=== PATIENT | male | born 1995 | race Caucasian/White ===

== ENCOUNTER 2019-11-10 13:24 | Emergency (ER) | payer OTHER ==
[2019-11-10 13:48] VITALS: BP 145/82; PULSE 77
--- NOTE | 2019-11-10 14:24 | EDM.PDOC ---
ED HPI GENERAL MEDICAL PROBLEM - General Chief Complaint: General Stated Complaint: RIGHT ARM PAIN Time Seen by Provider: 11/10/19 14:09 - History of Present Illness INITIAL COMMENTS - FREE TEXT/NARRATIVE: Presents emergency room by self for right upper arm injury which occurred just 1 hour prior to arrival. Patient was at the elevator on top of the semi truck in which a protective cage, hit his right upper arm and right elbow area. He did not get pinched in between surfaces. He felt immediate pain to the area, he did not hear any crack or snap to the right upper arm. He is right-hand dominant. Patient rates his pain constant sharp 4-10. Pain is worse with range of motion of the joint or pressing on his right upper arm. He did not take anything for the pain. Right Upper Arm Pain Score (Numeric/FACES): 4 - Related Data Allergies Allergy/AdvReac Type Severity Reaction Status Date / Time grass pollen Allergy Rash Verified 11/10/19 13:49 Tetanus Vaccines and Toxoid Allergy Edema Verified 11/10/19 13:49 [Tetanus Vaccines & Toxoid] venom-honey bee Allergy Rash Verified 11/10/19 13:49 [bee venom (honey bee)] Home Meds: Home Meds . [No Known Home Meds] 09/24/15 [History] Past Medical History Respiratory History: Reports: Asthma Other Respiratory History: ?exercise induced asthma as a child Other Musculoskeletal History: cracked collar bone Neurological History: Reports: Concussion Psychiatric History: Reports: Learning Disability, Suicidal Ideation Other Psychiatric History: IAp for learning - Infectious Disease History Infectious Disease History: Reports: Chicken Pox - Past Surgical History HEENT Surgical History: Reports: Adenoidectomy, Myringotomy w Tube(s), Tonsillectomy Social & Family History - Tobacco Use Smoking Status *Q: Never Smoker Second Hand Smoke Exposure: Yes - Caffeine Use Caffeine Use: Reports: None - Recreational Drug Use Recreational Drug Use: No ED ROS GENERAL - Review of Systems Review Of Systems: See Below Constitutional: Reports: No Symptoms HEENT: Reports: No Symptoms Respiratory: Reports: No Symptoms Cardiovascular: Reports: No Symptoms Musculoskeletal: Reports: Arm Pain (right upper arm pain/elbow pain.) Skin: Reports: No Symptoms. Denies: Cyanosis, Bruising, Erythema, Wound, Change in Color ED EXAM, GENERAL - Physical Exam Exam: See Below Exam Limited By: No Limitations General Appearance: Alert, WD/WN, No Apparent Distress Head: Atraumatic, Normocephalic Neck: Normal Inspection, Supple, Non-Tender Respiratory/Chest: Lungs Clear, Normal Breath Sounds Cardiovascular: Normal Peripheral Pulses, Regular Rate, Rhythm Peripheral Pulses: 2+: Radial (L), Radial (R) Back Exam: Normal Inspection, Full Range of Motion Extremities: Normal Inspection, Arm Pain. No: Joint Swelling, Pallor Psychiatric: Normal Affect, Normal Mood Skin Exam: Warm, Dry, Intact Course - Vital Signs Last Recorded V/S: Last Vital Signs Temp 99.6 F 11/10/19 13:44 Pulse 77 11/10/19 13:44 Resp 18 11/10/19 13:44 BP 145/82 H 11/10/19 13:44 Pulse Ox 97 11/10/19 13:44 - Orders/Labs/Meds Orders: Active Orders 24 hr Category Date Time Status Humerus Rt [CR] Stat Exams 11/10/19 13:55 Ordered - Re-Assessments/Exams Free Text/Narrative Re-Assessment/Exam: 11/10/19 14:33 ice applied, patient refused anything for pain, a repeat exam was conducted patient has significant right elbow pain with range of motion and palpation. Did repeat x-rays positive x-rays of the elbow and the humerus appear unremarkable no signs of acute fracture dislocation. I do suspect this to be contusion to the right upper arm. Patient understands what compartment syndrome is and signs and symptoms of that and return precautions discussed with patient. He has absolutely no signs of compartment syndrome at this time. Patient will ice it limit use right arm work note was also provided to give limit use his right arm for 1 week. Patient will follow with primary doctor as well next week for further restrictions if needed. Along with occupational health for Worker's Comp guidelines. Departure - Departure Time of Disposition: 14:39 Disposition: Home, Self-Care 01 Condition: Good Clinical Impression: Contusion of right upper arm, initial encounter - Discharge Information *PRESCRIPTION DRUG MONITORING PROGRAM REVIEWED*: No *COPY OF PRESCRIPTION DRUG MONITORING REPORT IN PATIENT KAJAL: No Instructions: Contusion, [id number], How to Use Cold Therapy, [id number] Referrals: Ariadna Mendes MD [Primary Care Provider] - Additional Instructions: Patient can follow-up with orthopedics and occupational health this week. Continue to ice the arm 20+ on and off. Patient may take 4 mg of Motrin with food every 4-6 hours for pain. He also may take 650 mg of p.o. Tylenol as well. please follow work note as provided. Sepsis Event Note (ED) - Evaluation Sepsis Screening Result: No Definite Risk - Focused Exam Vital Signs: Vital Signs Temp Pulse Resp BP Pulse Ox 11/10/19 13:44 99.6 F 77 18 145/82 H 97 - My Orders Last 24 Hours: My Active Orders 11/10/19 13:55 Humerus Rt [CR] Stat - Assessment/Plan Last 24 Hours: My Active Orders 11/10/19 13:55 Humerus Rt [CR] Stat
--- NOTE | 2019-11-10 14:27 | CR ---
[id number] RAD/RAD Humerus Right 2V EXAM: RAD Humerus Right 2V CLINICAL DATA: PAIN COMPARISON: NO PREVIOUS SIMILAR EXAM IS AVAILABLE. FINDINGS: No fracture or dislocation is seen. There is no radiopaque foreign body in the soft tissues. There is no air in the soft tissues. There is no cortical thickening or periosteal reaction either. IMPRESSION: NEGATIVE PLAIN FILM EXAM. Brayan Palma MD 11/10/19 [id number] Thank you for allowing us to participate in the care of your patient.
--- NOTE | 2019-11-10 14:53 | CR ---
[id number] RAD/RAD Elbow Right 3V Min Exam: RAD Elbow Right 3V Min Indication:RIGHT ELBOW INJURY/PAIN. Comparison: No prior imaging for comparison. Discussion/Impression: No fracture or dislocation. No AVN or erosive changes. No joint effusion. Param Conte MD 11/10/19 [id number] Thank you for allowing us to participate in the care of your patient.
== END 2019-11-10 14:40 | disposition home or self-care (01) ==
LOC: KA.ED 13:24
DX: S40.021A Contusion of right upper arm, initial encounter (principal); J45.909 Unspecified asthma, uncomplicated; Z91.048 Other nonmedicinal substance allergy status; Z88.7 Allergy status to serum and vaccine; Z91.030 Bee allergy status; Z77.22 Contact with and (suspected) exposure to environmental tobacco smoke (acute) (chronic); W22.8XXA Striking against or struck by other objects, initial encounter
CPT/HCPCS: 73060-RT; 73080-RT; 99283

== ENCOUNTER 2021-10-04 09:05 | Emergency (ER) | payer OTHER ==
[2021-10-04 09:25] VITALS: BP 143/82; PULSE 76
== END 2021-10-04 10:20 | disposition home or self-care (01) ==
LOC: KA.ED 09:05
DX: S46.911A Strain of unspecified muscle, fascia and tendon at shoulder and upper arm level, right arm, initial encounter (principal); S90.31XA Contusion of right foot, initial encounter; Z88.7 Allergy status to serum and vaccine; Z91.030 Bee allergy status; Z91.048 Other nonmedicinal substance allergy status; W20.8XXA Other cause of strike by thrown, projected or falling object, initial encounter; Y99.0 Civilian activity done for income or pay
CPT/HCPCS: 73030-RT; 73630-RT; 99283